=== PATIENT | male | born 1985 | race Caucasian/White ===

== ENCOUNTER 2020-01-06 20:21 | Inpatient (IN) | payer OTHER ==
[~2020-01-06] VITALS: Ht 172.7 cm; Wt 89.6 kg
[2020-01-06 21:04] LABS: PLATELET COUNT 166 x10^3mcL (130-400); RED CELL DISTRIBUTION WIDTH 12.8 % (11.5-14.5)
[2020-01-06 21:16] LABS: CARBON DIOXIDE 23.9 mmol/L (21-32); CREATININE SERUM 2.5 mg/dL (0.7-1.3)
[2020-01-06 21:21] LABS: ALBUMIN 3.5 g/dL (3.4-5.0); TOTAL PROTEIN, SERUM 7.8 g/dL (6.4-8.2)
[2020-01-06 21:31] LABS: UA SPECIFIC GRAVITY >=1.030 (1.005-1.035); microscopic required? YES; urine erythrocyte 2+ (NEGATIVE)
[2020-01-06 21:33] LABS: BAND NEUTROPHIL 6 % (0-10); BASOPHIL 0 % (0-2); MONOCYTE 7 % (0-7); SEGMENTED NEUTROPHILS 79 % (37-75)
[2020-01-06 21:34] LABS: rbc morphology (normal/abnorm) ABNORMAL (NORMAL)
[2020-01-07 00:30] VITALS: BP 132/71
[2020-01-07 00:37] VITALS: Ht 172.7 cm; Wt 89.6 kg
[2020-01-07 02:40] LABS: CHOLESTEROL/HDL RATIO 6.2
[2020-01-07 02:42] LABS: FREE T4 1.32 ng/dL (0.76-1.46); FREE THYROXINE INDEX 2.5 ug/dL (1.4-4.5); T4(THYROXINE) 7.3 ug/dL (4.7-13.3)
[2020-01-07 02:44] LABS: T3 TOTAL 0.99 ng/mL
[2020-01-07 05:06] VITALS: BP 102/79
[2020-01-07 06:43] LABS: BASOPHIL % 0.3 % (0-2); RED CELL DISTRIBUTION WIDTH 12.9 % (11.5-14.5)
[2020-01-07 06:52] LABS: PLATELET COUNT 113 x10^3mcL (130-400)
[2020-01-07 07:10] LABS: ALKALINE PHOSPHATASE 63 U/L (46-116); ALT/SGPT 117 U/L (16-63); AST/SGOT 139 U/L (15-37); BILIRUBIN TOTAL 8.9 mg/dL (0.20-1.00); CARBON DIOXIDE 23.2 mmol/L (21-32); CHLORIDE SERUM 101 mmol/L (98-107); CREATININE SERUM 1.2 mg/dL (0.7-1.3); GFR1 > 60 mL/min; GLUCOSE SERUM 230 mg/dL (74-106); SODIUM SERUM 135 mmol/L (136-145)
[2020-01-07 07:23] LABS: ALBUMIN 2.4 g/dL (3.4-5.0); TOTAL PROTEIN, SERUM 5.9 g/dL (6.4-8.2)
[2020-01-07 07:48] LABS: CALCIUM 7.7 mg/dL (8.5-10.1); LIPASE 4311 IU/L (73-393)
[2020-01-07 08:13] VITALS: BP 130/77
[2020-01-07 12:00] VITALS: BP 116/67
[2020-01-07 16:18] VITALS: BP 117/74
[2020-01-07 16:39] LABS: AMPHETAMINE QUAL UR NONE DETECTED (See below)
[2020-01-07 20:26] VITALS: BP 120/70
[2020-01-08 05:35] VITALS: BP 127/59
[2020-01-08 06:31] LABS: BASOPHIL % 0.2 % (0-2); RED CELL DISTRIBUTION WIDTH 12.6 % (11.5-14.5)
[2020-01-08 06:52] LABS: CALCIUM 7.8 mg/dL (8.5-10.1); CARBON DIOXIDE 24.5 mmol/L (21-32); CHLORIDE SERUM 99 mmol/L (98-107); CREATININE SERUM 0.9 mg/dL (0.7-1.3); GFR1 > 60 mL/min; GLUCOSE SERUM 147 mg/dL (74-106); MAGNESIUM 1.7 mg/dL (1.8-2.4); PHOSPHOROUS 1.1 mg/dL (2.5-4.9); POTASSIUM SERUM 3.4 mmol/L (3.5-5.1); SODIUM SERUM 133 mmol/L (136-145)
[2020-01-08 07:08] LABS: PLATELET COUNT 108 x10^3mcL (130-400)
[2020-01-08 07:30] VITALS: BP 138/83
[2020-01-08 11:56] VITALS: BP 131/86
[2020-01-08 17:03] VITALS: BP 114/67
[2020-01-08 19:17] LABS: ALKALINE PHOSPHATASE 61 U/L (46-116); ALT/SGPT 92 U/L (16-63); AST/SGOT 102 U/L (15-37); BILIRUBIN TOTAL 5.41 mg/dL (0.20-1.00); CARBON DIOXIDE 24.6 mmol/L (21-32); CHLORIDE SERUM 101 mmol/L (98-107); CREATININE SERUM 0.9 mg/dL (0.7-1.3); GFR1 > 60 mL/min; GLUCOSE SERUM 142 mg/dL (74-106); POTASSIUM SERUM 3.6 mmol/L (3.5-5.1); SODIUM SERUM 136 mmol/L (136-145)
[2020-01-08 19:25] LABS: ALBUMIN 2.2 g/dL (3.4-5.0); TOTAL PROTEIN, SERUM 6.1 g/dL (6.4-8.2)
[2020-01-08 22:38] VITALS: BP 121/84
[2020-01-09 06:03] VITALS: BP 145/94
[2020-01-09 06:15] VITALS: BP 141/93
[2020-01-09 06:23] LABS: BASOPHIL % 0.3 % (0-2); RED CELL DISTRIBUTION WIDTH 12.7 % (11.5-14.5)
[2020-01-09 08:10] LABS: CALCIUM 8.6 mg/dL (8.5-10.1); CARBON DIOXIDE 28.2 mmol/L (21-32); CHLORIDE SERUM 97 mmol/L (98-107); CREATININE SERUM 0.7 mg/dL (0.7-1.3); GFR1 > 60 mL/min; GLUCOSE SERUM 118 mg/dL (74-106); MAGNESIUM 2.1 mg/dL (1.8-2.4); PHOSPHOROUS 1.7 mg/dL (2.5-4.9); SODIUM SERUM 134 mmol/L (136-145)
[2020-01-09 08:12] VITALS: BP 139/94
[2020-01-09 08:22] LABS: PLATELET COUNT 112 x10^3mcL (130-400)
[2020-01-09 10:31] LABS: CALCIUM 8.5 mg/dL (8.5-10.1); CARBON DIOXIDE 27.9 mmol/L (21-32); CHLORIDE SERUM 96 mmol/L (98-107); CREATININE SERUM 0.8 mg/dL (0.7-1.3); GFR1 > 60 mL/min; GLUCOSE SERUM 143 mg/dL (74-106); POTASSIUM SERUM 3.2 mmol/L (3.5-5.1); SODIUM SERUM 133 mmol/L (136-145)
[2020-01-09 10:35] LABS: ALKALINE PHOSPHATASE 83 U/L (46-116); ALT/SGPT 77 U/L (16-63); AST/SGOT 86 U/L (15-37); BILIRUBIN TOTAL 2.65 mg/dL (0.20-1.00); TOTAL PROTEIN, SERUM 6.6 g/dL (6.4-8.2)
[2020-01-09 10:36] LABS: ALBUMIN 2.3 g/dL (3.4-5.0)
[2020-01-09 12:01] VITALS: BP 138/97
[2020-01-09 20:07] VITALS: BP 140/102
[2020-01-10 04:56] VITALS: BP 136/88
[2020-01-10 06:28] LABS: BASOPHIL % 0.4 % (0-2); PLATELET COUNT 169 x10^3mcL (130-400); RED CELL DISTRIBUTION WIDTH 12.9 % (11.5-14.5)
[2020-01-10 06:47] LABS: ALKALINE PHOSPHATASE 95 U/L (46-116); ALT/SGPT 72 U/L (16-63); AST/SGOT 83 U/L (15-37); BILIRUBIN TOTAL 2.1 mg/dL (0.20-1.00); CALCIUM 8.4 mg/dL (8.5-10.1); CARBON DIOXIDE 27.6 mmol/L (21-32); CHLORIDE SERUM 98 mmol/L (98-107); CREATININE SERUM 0.7 mg/dL (0.7-1.3); GFR1 > 60 mL/min; GLUCOSE SERUM 114 mg/dL (74-106); LACTIC DEHYDROGENASE (LDH) 446 U/L (100-190); MAGNESIUM 2.1 mg/dL (1.8-2.4); PHOSPHOROUS 2.2 mg/dL (2.5-4.9); POTASSIUM SERUM 3.5 mmol/L (3.5-5.1); SODIUM SERUM 135 mmol/L (136-145); TOTAL PROTEIN, SERUM 6.7 g/dL (6.4-8.2)
[2020-01-10 06:57] LABS: ALBUMIN 2.3 g/dL (3.4-5.0)
[2020-01-10 08:29] VITALS: BP 146/92
[2020-01-10] MEDS ORDERED: AUGMENTIN1 TA1 PO (11:40)
[2020-01-10] MEDS ORDERED: ACIDOPHILUS LA1 EAC1 PO (11:43)
[2020-01-10 11:56] VITALS: BP 136/88
[2020-01-10 12:37] VITALS: BP 138/87
[2020-01-10] MEDS ORDERED: ULTRAM50 MG PO ×3 (13:00→13:06)
== END 2020-01-10 14:33 | disposition home or self-care (01) | DRG 871 ==
LOC: ED 20:21 → MU 22:40 → DU 22:40
PROVIDERS: Emergency Medicine; ADMIT Family Medicine
DX: A41.9 Sepsis, unspecified organism (principal); N17.0 Acute kidney failure with tubular necrosis; K85.20 Alcohol induced acute pancreatitis without necrosis or infection; N39.0 Urinary tract infection, site not specified; E87.1 Hypo-osmolality and hyponatremia; E86.0 Dehydration; K80.50 Calculus of bile duct without cholangitis or cholecystitis without obstruction; E87.6 Hypokalemia; K70.10 Alcoholic hepatitis without ascites; R31.9 Hematuria, unspecified; R79.89 Other specified abnormal findings of blood chemistry; R73.9 Hyperglycemia, unspecified; R74.0 Nonspecific elevation of levels of transaminase and lactic acid dehydrogenase [LDH]; E80.6 Other disorders of bilirubin metabolism; F17.210 Nicotine dependence, cigarettes, uncomplicated
CPT/HCPCS: 36600; 74181; 84439; C9113; G0378; J0696; J1170; J1885; J1940; J2060; J2270; J2543; J3490; J7030; J7050; J7120; Q0092